=== PATIENT | female | born 1975 | race Two or more races ===

== ENCOUNTER → 2020-10-24 15:22 | Outpatient (BNVA) | payer OTHER, SELFPAY | PROVIDERS: PCP Internal Medicine; Visit Provider Physician Assistant | DX: S80.02XA Contusion of left knee, initial encounter (principal); W19.XXXA Unspecified fall, initial encounter | CPT/HCPCS: 73564; 99203 ==

== ENCOUNTER → 2020-11-01 14:53 | Outpatient (BNVA) | payer OTHER, SELFPAY | PROVIDERS: PCP Internal Medicine; Visit Provider Physician Assistant | DX: S80.01XA Contusion of right knee, initial encounter (principal); W19.XXXA Unspecified fall, initial encounter | CPT/HCPCS: 99213 ==

== ENCOUNTER → 2020-11-09 15:44 | Outpatient (BNVA) | payer OTHER, SELFPAY | PROVIDERS: PCP Internal Medicine; Visit Provider Physician Assistant | DX: S80.211D Abrasion, right knee, subsequent encounter (principal); S80.01XD Contusion of right knee, subsequent encounter; X58.XXXD Exposure to other specified factors, subsequent encounter | CPT/HCPCS: 99213 ==

== ENCOUNTER → 2020-11-18 15:46 | Outpatient (BNVA) | payer OTHER, SELFPAY | PROVIDERS: PCP Internal Medicine; Visit Provider Physician Assistant Medical | DX: S80.211D Abrasion, right knee, subsequent encounter (principal); X58.XXXD Exposure to other specified factors, subsequent encounter; M22.2X2 Patellofemoral disorders, left knee | CPT/HCPCS: 99213 ==

== ENCOUNTER → 2020-12-02 15:19 | Outpatient (BNVA) | payer OTHER, SELFPAY | PROVIDERS: PCP Internal Medicine; Visit Provider Physician Assistant Medical | DX: S76.111D Strain of right quadriceps muscle, fascia and tendon, subsequent encounter (principal); W18.30XD Fall on same level, unspecified, subsequent encounter | CPT/HCPCS: 99213 ==

== ENCOUNTER 2020-12-19 12:46 | Outpatient (REF) | payer OTHER, SELFPAY ==
--- NOTE | ~2020-12-19 | MR_ITS ---
EXAMINATION: MR KNEE WITHOUT CONTRAST, RIGHT CLINICAL INFORMATION: Anterior knee pain. Work injury 10/24/2020. COMPARISON: Right knee radiographs dated 10/24/2020. TECHNIQUE: MRI of the knee without contrast was performed using routine sequences on a high-field scanner. FINDINGS: MENISCI: Medial Meniscus: Intermediate signal in the posterior horn of the medial meniscus compatible with mild myxoid degenerative change. Lateral Meniscus: Intact LIGAMENTS: Cruciate: Intact Collateral: Intact EXTENSOR MECHANISM: Intact ARTICULAR CARTILAGE/BONE: Patellofemoral Compartment: Subtle spurring about the medial facet is better characterized on comparison 10/24/2020 radiographic examination. Patellofemoral compartment articular cartilage is preserved. Subchondral bone is normal. Medial Compartment: Articular cartilage is preserved. Subchondral bone is normal. Lateral Compartment: Articular cartilage is preserved. Subchondral bone is normal. JOINT FLUID AND BURSAE: Physiologic joint space fluid. No joint effusion. Small prepatellar bursal effusion is noted. MR/MR knee RT wo con IMPRESSION: Right knee: 1. Prepatellar bursitis. 2. Intact cruciate and collateral ligaments. 3. Intact menisci. 4. Preserved tricompartmental articular cartilage.
== END 2020-12-19 12:47 | disposition home or self-care (01) ==
LOC: HO.MRI 12:46
PROVIDERS: Visit Provider Internal Medicine
DX: M25.561 Pain in right knee (principal); R53.1 Weakness
CPT/HCPCS: 73721

== ENCOUNTER → 2020-12-21 11:20 | Outpatient (BNVA) | payer OTHER, SELFPAY | PROVIDERS: PCP Internal Medicine; Visit Provider Physician Assistant Medical | DX: M70.41 Prepatellar bursitis, right knee (principal) | CPT/HCPCS: 99213 ==

== ENCOUNTER 2020-12-30 14:00 | Outpatient (RCR) | payer OTHER, SELFPAY ==
--- NOTE | 2021-01-26 16:15 | MHC.PT.DC ---
[facility] [place] [facility] [place] [facility] [place] [facility] [address] Karon Bailey 140 [facility] [phone] F: [phone] F: [phone] F: [phone] F: [phone] Physical Therapy Discharge Report Diagnosis: Right knee contusion/pain Date of Surgery: DOI 10/24/20 Date of Evaluation: 11/16/20 Date of Discharge: 01/26/21 Treatments to Date: 5 Cancellations to Date: 10 No Shows to Date: 3 Discharge Status: Recommend MD Follow-up Discharge Summary: pt not progressing w/ PT at this time. pt will follow-up w/ orthopedics to determine plan for pain management at this time. If pt wishes to return to physical therapy she will need to obtain a new script. Electronically signed by: Lynda Almendarez PT, DPT Please sign and return to therapist. Thank you for your referral.
== END 2021-01-26 16:16 | disposition other institution (70) ==
LOC: HO.PT 14:00
PROVIDERS: Visit Provider Physician Assistant
DX: S80.01XD Contusion of right knee, subsequent encounter (principal)
CPT/HCPCS: 97014; 97110; 97161

== ENCOUNTER → 2021-01-05 15:46 | Outpatient (BNVA) | payer OTHER, SELFPAY | PROVIDERS: PCP Internal Medicine; Visit Provider Physician Assistant Medical | DX: M70.41 Prepatellar bursitis, right knee (principal) | CPT/HCPCS: 99213 ==

== ENCOUNTER → 2021-01-17 10:54 | Outpatient (BNVA) | payer OTHER, SELFPAY | PROVIDERS: PCP Radiology Vascular & Interventional Radiology; Visit Provider Physician Assistant | DX: M70.40 Prepatellar bursitis, unspecified knee (principal) | CPT/HCPCS: 20610; 99202 ==

== ENCOUNTER → 2021-01-19 15:47 | Outpatient (BNVA) | payer OTHER, SELFPAY | PROVIDERS: PCP Internal Medicine; Visit Provider Physician Assistant Medical | DX: M70.41 Prepatellar bursitis, right knee (principal) | CPT/HCPCS: 99213 ==

== ENCOUNTER 2021-02-13 17:00 | Outpatient (RCR) | payer OTHER, SELFPAY ==
--- NOTE | 2021-01-26 16:12 | MHC.PT.EP ---
[facility] [place] [facility] [place] [facility] [place] [facility] [address] Karon Bailey [address] [phone] F: [phone] F: [phone] F: [phone] F: [phone] Physical Therapy Plan of Care Date of Evaluation: 01/26/21 Date of Surgery: N/A Diagnosis: prepatellar bursitis of R knee Assessment: pt presents w/ diagnostic imaging consistent w/ prepatellar bursitis. She reported a slight improvement of her pain w/ cortisone injection. She has not trialed iontophoresis treatment and may benefit from this modality in reducing her swelling and pain. pt presents to physical therapy with pain, decreased range of motion, decreased strength, impaired functional mobility, impaired postural awareness, and gait deviations. pt is a good candidate for skilled PT due to age, potential remediation of impairments, typical disease/condition progression and prognosis, comorbidities, and motivation. pt would benefit from tailored strengthening and stretching exercise program, functional training, gait training, postural re-training, neuromuscular re-education, modalities as needed for pain, equipment safety demonstration. Frequency and Duration: The patient will be seen 2x/wk for 4 wks Short Term Goals: pt will be I w/ HEP to promote self-management of condition. pt will improve R knee extension to 0 degrees actively to remediate gait impairments on even ground w/ LRAD. Toe Trimmer Goals: pt will report a statistically significant improvement in her self-reported outcome measure, LEFI, to promote return to PLOF. pt will ascend/descend 12 stairs w/ reciprocal pattern w/ LRAD to promote access to apartment. Treatment Plan: Modalities to reduce pain, spasms and effusion. Manual therapy to restore motion and function. Therapeutic exercise to improve strength and flexibility. Neuromuscular re-education for posture and balance. Therapeutic activities to return to functional activities of daily living. Electronically signed by: Lynda Almendarez PT, DPT Please sign and return to therapist. Thank you for your referral.
--- NOTE | 2021-03-06 15:31 | MHC.PT.DC ---
[facility] [place] [facility] [place] [facility] [place] [facility] [address] Karon Bailey [address] [phone] F: [phone] F: [phone] F: [phone] F: [phone] Physical Therapy Discharge Report Diagnosis: prepatellar bursitis of R knee Date of Surgery: N/A Date of Evaluation: 01/26/21 Date of Discharge: 03/06/21 Treatments to Date: 3 Cancellations to Date: 3 No Shows to Date: 2 Discharge Status: Visit Non-compliance Discharge Summary: The patient was reporting an improvement in her knee pain. She has not followed up with any further appointments in three weeks. She is discharged from this physical therapy plan of care due to visit non-compliance. Electronically signed by: Lynda Almendarez PT, DPT Please sign and return to therapist. Thank you for your referral.
== END 2021-03-06 15:31 | disposition other institution (70) ==
LOC: HO.PT 17:00
PROVIDERS: PCP Internal Medicine; Visit Provider Physician Assistant
DX: M70.41 Prepatellar bursitis, right knee (principal)
CPT/HCPCS: 97033; 97110; 97161

== ENCOUNTER → 2021-02-16 15:45 | Outpatient (BNVA) | payer OTHER, SELFPAY | PROVIDERS: PCP Internal Medicine; Visit Provider Physician Assistant Medical | DX: M70.41 Prepatellar bursitis, right knee (principal) | CPT/HCPCS: 29515; 99213 ==

== ENCOUNTER → 2021-03-01 15:40 | Outpatient (BNVA) | payer OTHER, SELFPAY | PROVIDERS: PCP Internal Medicine; Visit Provider Physician Assistant Medical | DX: M70.41 Prepatellar bursitis, right knee (principal) | CPT/HCPCS: 99213 ==

== ENCOUNTER → 2023-01-04 09:54 | Outpatient (BNVA) | payer OTHER, SELFPAY | PROVIDERS: PCP Internal Medicine; Visit Provider Internal Medicine | DX: T14.8XXA Other injury of unspecified body region, initial encounter (principal); W50.3XXA Accidental bite by another person, initial encounter | CPT/HCPCS: 99202 ==